=== PATIENT | male | born 1980 | race Caucasian/White ===

== ENCOUNTER 2018-10-14 09:13 | Emergency (ER) | payer MEDICAID ==
[~2018-10-14] VITALS: Ht 188 cm; Wt 73.0 kg
--- NOTE | 2018-10-14 09:27 | NUR ---
[facility]. Witnessed seizure and patient A&Ox1 upon fire department's arrival. A&Ox4 in ED. Hx EtOH abuse and last drink was 6.. Patient anxious. Denies pain. 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 Will continue to monitor.
[2018-10-14] MEDS ORDERED: THIAMINE 100MG TABLET PO ONE (09:30)
[2018-10-14] MEDS ORDERED: LORazepam 2 MG/ML, 1ML IVPush ONE ×2 (09:30→11:30)
[2018-10-14] MEDS ORDERED: LORazepam 2 MG/ML, 1ML ONE ×2 (09:42→11:31)
--- NOTE | 2018-10-14 09:43 | NUR ---
[facility] RECORDS REQUEST SENT
[2018-10-14] MEDS ORDERED: THIAMINE 100MG TABLET ONE (09:44)
--- NOTE | 2018-10-14 10:10 | NUR ---
Patient reports improved symptoms since ativan dose.
--- NOTE | 2018-10-14 10:57 | NUR ---
Resting in [facility]. VSS.
[2018-10-14] MEDS ORDERED: SODIUM CHLORIDE 0.9% 1,000ML IVBOLUS ONE (11:30)
--- NOTE | 2018-10-14 11:38 | NUR ---
NS hung and ativan admin. No other needs at this time.
--- NOTE | 2018-10-14 12:32 | NUR ---
Resting in [facility]. No needs. RR=16.
[2018-10-14 13:23] VITALS: BP 137/94
--- NOTE | 2018-10-14 13:23 | NUR ---
Patient/Caregiver given discharge instructions and they have confirmed that they understand the instructions. Patient ambulatory with steady gait.
== END 2018-10-14 13:26 | disposition home or self-care (01) ==
LOC: ED 11:32
DX: R56.9 Unspecified convulsions (principal); F10.239 Alcohol dependence with withdrawal, unspecified; S00.511A Abrasion of lip, initial encounter; Y90.9 Presence of alcohol in blood, level not specified; X58.XXXA Exposure to other specified factors, initial encounter; Y93.89 Activity, other specified; Y92.89 Other specified places as the place of occurrence of the external cause; Y99.8 Other external cause status
CPT/HCPCS: 96374; 96376; 99283; J2060; J7030

== ENCOUNTER 2018-10-18 20:25 | Emergency (ER) | payer MEDICAID ==
[~2018-10-18] VITALS: Ht 188 cm; Wt 65.0 kg
[2018-10-18] MEDS ORDERED: ZIPRASIDONE 20 MG INJ IM ONE ×2 (21:06→21:30)
--- NOTE | 2018-10-18 21:09 | NUR ---
PT BIB [facility]. PT DOWNTOWN THREATENING TO JUMP OFF VARIOUS BUILDINGS. BYSTANDER CALLED EMS. EMS ARRIVED AND PT THREATENED PHYSICAL HARM TO EMS. EMS CALLED [facility] WHO BROUGHT PT TO HOSPITAL IN [place]. [facility] STATED PT IS A 0.24 ON BREATHYLIZER, [facility] FILLED OUT LEGAL HOLD. WHILE [employer] HERE, PT STATED, "I'M READY MAN, I'M READY TO GO, I WAS GOING TO JUMP [place]". PT SEMI-COOPERATIVE WHILE [facility] HERE, WITH REMOVING CLOTHING AND PUTTING ON HOSPITAL SOCKS. PT REFUSED TO ANSWER ASSESSMENT QUESTIONS. PT STATED HE BANGED HIS HEAD AGAINST A SIDEWALK EARLIER, NO S/S OF INJURY TO FOREHEAD SEEN NOR FELT ON PALPATION. PT BELONGINGS BAGGED, TAGGED AND PLACED IN CLOTHING CLOSET. PT PLACED IN 2 POINT RESTRAINTS ON ARRIVAL WITH [facility]. PT USING LEFT FREE HAND TO HOLD TO THROAT CAUSING PT HEAD TO TURN RED AND PT TO CHOKE. PT THEN PLACED IN 4 POINT RESTRAINTS DUE TO RISK TO SELF. PT STATED HE IS TRYING TO DISLODGE THE COTTON THAT IS STUCK IN HIS THROAT. PT YELLING OUT CURSES AND THREATS AGAINST STAFF FROM ROOM. PT ASKED NOT TO YELL. PT CONTINUING TO YELL OUT. ERP AWARE, ORDERS PLACED.
--- NOTE | 2018-10-18 21:20 | NUR ---
PT CONTINUING TO YELL THREATS AGAINST STAFF, STATING, "I'M GOING TO KILL YOUR WHOLE FAMILY, I'LL REMEMBER ALL OF YOU!!" PT STATED TO THIS RN, "YOU WANT TO FUCK WITH ME, HUH? I'LL FUCK YOU UP." PT MEDICATED FOR AGITATION PER EMAR. WILL CONTINUE TO MONITOR.
[2018-10-18] MEDS: PLEASE ENTER HEIGHT AND WEIGHT MC SCH (21:30)
--- NOTE | 2018-10-18 22:38 | NUR ---
PT RESTING CALMER IN BED AT THIS TIME. PT IN 2 POINT AT THIS TIME. WILL CONTINUE TO MONITOR.
--- NOTE | 2018-10-18 23:05 | NUR ---
pt released from restraints. pt calm and using kind words at this time. pt resting in bed with eyes closed. will continue to monitor.
--- NOTE | 2018-10-19 00:06 | NUR ---
PT RESTING CALMLY IN BED. PT GIVEN WATER PER PT REQUEST.
--- NOTE | 2018-10-19 01:37 | NUR ---
PT RESTING CALMLY IN BED WITH EYES CLOSED. PT RESP EVEN AND NON LABORED. WILL CONTINUE TO MONITOR.
--- NOTE | 2018-10-19 02:52 | NUR ---
PT CONTINUES TO REST CALMLY IN BED. NO STATED NEEDS AT THIS TIME.
--- NOTE | 2018-10-19 03:11 | NUR ---
pt resting in bed with eyes closed. no stated needs at this time.
--- NOTE | 2018-10-19 04:30 | NUR ---
pt breathyzer done, see charted. pt standing by noa, put gown back on. pt gait is steady. pt given water. erp aware pt awake and will re-eval pt. pt friendly at this time.
--- NOTE | 2018-10-19 05:20 | NUR ---
pt awake and talking to sitter. pt given water x 2. will continue to monitor. pt resting in bed.
[2018-10-19] MEDS: PLEASE ENTER HEIGHT AND WEIGHT MC SCH (05:30)
--- NOTE | 2018-10-19 06:42 | NUR ---
pt resting in bed with eyes closed at this time. dispo is to re-eval pt when sober.
--- NOTE | 2018-10-19 07:52 | NUR ---
PT RESTING IN [facility], NAD, SITTER MONITORING FROM [facility]
[2018-10-19 08:54] VITALS: BP 127/86
--- NOTE | 2018-10-19 08:55 | NUR ---
PT PROVIDED WITH MEAL TRAY AND THANKFUL. DENIES FURTHER NEEDS AT THIS TIME. SITTER MONITORING FROM [facility]. PT REPORTS "I HATE LIFE" WHEN DISCUSSING SUICIDE RISK.
--- NOTE | 2018-10-19 10:12 | NUR ---
PT SLEEPING IN GURNEY, AROUSES TO VOICE. PT ATE APPROX 100% OF BREAKFAST. NO ACUTE S.S OF DISTRESS. DENIES NEEDS AT THIS TIME
--- NOTE | 2018-10-19 11:00 | NUR ---
late entry. pt moved to room 39 for working television and hospital bed provided.
--- NOTE | 2018-10-19 12:44 | NUR ---
pt provided with meal tray, no acute s/s of distress. pt denies further needs at this time
--- NOTE | 2018-10-19 13:42 | NUR ---
NU MEJIA AT BEDSIDE, ASSESSMENT IN PROGRESS
== END 2018-10-19 15:03 | disposition home or self-care (01) ==
LOC: ED 20:46
DX: F91.9 Conduct disorder, unspecified (principal); F10.229 Alcohol dependence with intoxication, unspecified
CPT/HCPCS: 96372; 99284; J3486